=== PATIENT | male | born 2000 | race Caucasian/White ===

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

== ENCOUNTER → 2021-07-05 | Outpatient (CLI) | payer MEDICAID ==
[2021-07-05 14:38] LABS: URINE WBC 0 /hpf (0-3)
[2021-07-05 15:55] LABS: URINE APPEARANCE HAZY; URINE COLOR YELLOW
[2021-07-05 15:56] LABS: URINE BILIRUBIN NEGATIVE (NEGATIVE); URINE BLOOD NEGATIVE (NEGATIVE); URINE GLUCOSE NEGATIVE (NEGATIVE); URINE KETONE NEGATIVE (NEGATIVE); URINE LEUKOCYTE ESTERASE NEGATIVE (NEGATIVE); URINE MUCUS PRESENT (NOT PRESENT); URINE NITRATE NEGATIVE (NEGATIVE); URINE PROTEIN(semi-quant) NEGATIVE (NEGATIVE); URINE UROBILINOGEN NORMAL (NORMAL)
== END ==
LOC: RAD 14:09
PROVIDERS: Nurse Practitioner Family
DX: N50.89 Other specified disorders of the male genital organs (principal)

== ENCOUNTER 2021-08-01 20:38 | Emergency (ER) | payer MEDICAID ==
[2021-08-01 22:28] VITALS: BP 122/68
== END 2021-08-01 22:28 | disposition home or self-care (01) ==
LOC: ED 20:38
DX: S93.401A Sprain of unspecified ligament of right ankle, initial encounter (principal); Z28.310 Unvaccinated for COVID-19; X50.1XXA Overexertion from prolonged static or awkward postures, initial encounter; Y93.67 Activity, basketball